=== PATIENT | male | born 1950 | race African-American/Black ===

== ENCOUNTER 2017-10-17 14:54 | Emergency (ER) | payer MEDICAID ==
[~2017-10-17] VITALS: Ht 172.7 cm; Wt 79.0 kg
[~2017-10-17 14:54] MED LIST: AMLO10TA4 PO; ASPI-1159 PO; BENA20TA77 PO; BUSP10TA3 PO; HYDR-519 PO
[2017-10-17 16:15] LABS: BASOPHILS % 0.6 % (0.0-2.0); EOSINOPHILS % 1.8 % (0.0-5.0); HEMATOCRIT. 39.6 % (42.0-52.0); HEMOGLOBIN. 13.7 g/dL (14.0-18.0); LYMPHOCYTES % 50.8 % (20.0-50.0); MEAN CORPUSCULAR HEMOGLOBIN 31.2 pg (28.0-32.0); MEAN CORPUSCULAR VOLUME 89.9 fL (80.0-94.0); MEAN PLATELET VOLUME 8.4 fl (7.4-10.4); MONOCYTES % 10.2 % (2.0-8.0); NEUTROPHILS % 36.6 % (40.0-76.0); PLATELET 154 x1000/uL (130-400); RED CELL DISTRIBUTION WIDTH 13.2 % (11.6-14.6)
[2017-10-17 16:20] LABS: CHLORIDE 105 mEq/L (98-107)
[2017-10-17 16:23] LABS: INR 1.1; PARTIAL THROMBOPLASTIN TIME 23.1 sec (23.4-31.0); PROTHROMBIN TIME 11.2 sec (9.4-11.6)
[2017-10-17 16:24] LABS: ETHANOL BLOOD < 10 mg/dL
[2017-10-17] MEDS ORDERED: MORPHINE SULFATE 4 MG/ML CPJ (NOT FOR IM USE) IV ONE ×2 (16:45)
[2017-10-17 18:05] LABS: CLARITY URINE CLEAR (CLEAR); COLOR URINE DARK YELLOW (YELLOW); KETONES URINE TRACE (NEGATIVE); LEUKOCYTE ESTERASE URINE NEGATIVE (NEGATIVE); NITRITE URINE NEGATIVE (NEGATIVE); OCCULT BLOOD URINE TRACE (NEGATIVE); PROTEIN URINE TRACE (NEGATIVE)
[2017-10-17 18:29] LABS: *AMPHETAMINES SCREEN URINE PRESUMTIVE POSITIVE (NEGATIVE); *BARBITURATES SCREEN URINE NEGATIVE (NEGATIVE); *BENZODIAZEPINES SCREEN URINE NEGATIVE (NEGATIVE); *COCAINE SCREEN URINE PRESUMTIVE POSITIVE (NEGATIVE)
[2017-10-17 18:30] LABS: CANNABINOID URINE SCREEN PRESUMTIVE POSITIVE (NEGATIVE); METHADONE URINE SCREEN NEGATIVE (NEGATIVE); OPIATES URINE SCREEN NEGATIVE (NEGATIVE); PHENCYCLIDINE URINE SCREEN NEGATIVE (NEGATIVE)
[2017-10-17 18:37] VITALS: BP 128/80
== END 2017-10-17 20:05 | disposition home or self-care (01) ==
LOC: ER 15:53
DX: N40.1 Benign prostatic hyperplasia with lower urinary tract symptoms (principal); I10 Essential (primary) hypertension; I25.10 Atherosclerotic heart disease of native coronary artery without angina pectoris; F17.200 Nicotine dependence, unspecified, uncomplicated; F12.10 Cannabis abuse, uncomplicated; Z79.82 Long term (current) use of aspirin
CPT/HCPCS: 36415; 51701; 71045; 80053; 80305; 81003; 83690; 84484; 85025; 85610; 85730; 93005; 96374; 99285; G0482; J2270

== ENCOUNTER 2018-01-17 18:25 | Emergency (ER) | payer MEDICARE, MEDICAID ==
[~2018-01-17] VITALS: Ht 180.3 cm; Wt 78.0 kg
[2018-01-17] MEDS ORDERED: ONDANSETRON HCL 4MG/2ML INJ IV STA (20:19)
[2018-01-17] MEDS ORDERED: KETOROLAC 30MG/ML VIAL IV STA (20:19)
[2018-01-17] MEDS ORDERED: LORAZEPAM 2MG/ML CPJ IV STA (20:19)
[2018-01-17] MEDS ORDERED: MORPHINE SULFATE 4 MG/ML CPJ (NOT FOR IM USE) IV STA (20:19)
[2018-01-17] MEDS ORDERED: SODIUM CHLORIDE 0.9% 1,000 ML IV ONE (20:19)
[2018-01-17 23:05] LABS: BASOPHILS % 0.4 % (0.0-2.0); EOSINOPHILS % 1.8 % (0.0-5.0); HEMATOCRIT. 40.1 % (42.0-52.0); HEMOGLOBIN. 13.6 g/dL (14.0-18.0); LYMPHOCYTES % 37.4 % (20.0-50.0); MEAN CORPUSCULAR HEMOGLOBIN 31.1 pg (28.0-32.0); MEAN CORPUSCULAR VOLUME 91.5 fL (80.0-94.0); MEAN PLATELET VOLUME 8.9 fl (7.4-10.4); MONOCYTES % 6.9 % (2.0-8.0); NEUTROPHILS % 53.5 % (40.0-76.0); PLATELET 121 x1000/uL (130-400); RED BLOOD CELL COUNT 4.38 mill/uL (4.7-6.1); RED CELL DISTRIBUTION WIDTH 13.6 % (11.6-14.6)
[2018-01-17 23:07] LABS: *BARBITURATES SCREEN URINE NEGATIVE (NEGATIVE)
[2018-01-17 23:08] LABS: *AMPHETAMINES SCREEN URINE NEGATIVE (NEGATIVE); *BENZODIAZEPINES SCREEN URINE NEGATIVE (NEGATIVE); *COCAINE SCREEN URINE NEGATIVE (NEGATIVE); METHADONE URINE SCREEN NEGATIVE (NEGATIVE); OPIATES URINE SCREEN PRESUMTIVE POSITIVE (NEGATIVE); PHENCYCLIDINE URINE SCREEN PRESUMTIVE POSITIVE (NEGATIVE)
[2018-01-17 23:09] LABS: CANNABINOID URINE SCREEN PRESUMTIVE POSITIVE (NEGATIVE)
[2018-01-17 23:10] LABS: CHLORIDE 107 mEq/L (98-107)
[2018-01-17 23:14] LABS: INR 1.1; PARTIAL THROMBOPLASTIN TIME 25.8 sec (23.4-31.0); PROTHROMBIN TIME 10.8 sec (9.1-11.1)
[2018-01-17 23:16] LABS: ETHANOL BLOOD < 10 mg/dL
[2018-01-17 23:21] LABS: CREATINE KINASE 93 IU/L (39-308)
[2018-01-17 23:23] LABS: AMMONIA 11 uMol/L (<32)
[2018-01-18 02:22] VITALS: BP 126/65
== END 2018-01-18 02:27 | disposition home or self-care (01) ==
LOC: ER 18:47
DX: T43.621A Poisoning by amphetamines, accidental (unintentional), initial encounter (principal); R51 Headache; I10 Essential (primary) hypertension; F12.10 Cannabis abuse, uncomplicated; F11.10 Opioid abuse, uncomplicated; F16.10 Hallucinogen abuse, uncomplicated; F17.200 Nicotine dependence, unspecified, uncomplicated; N28.9 Disorder of kidney and ureter, unspecified; Z79.899 Other long term (current) drug therapy; Y92.89 Other specified places as the place of occurrence of the external cause
CPT/HCPCS: 36415; 70450; 71045; 80053; 80305; 80307; 80329; 82140; 82550; 82962; 83690; 83880; 84443; 84484; 85025; 85610; 85730; 93005; 96361; 96374; 96375; 99285; G0482; J1885; J2060; J2270; J2405; J7030

== ENCOUNTER 2021-03-02 14:57 | Emergency (ER) | payer MEDICARE, MEDICAID ==
[~2021-03-02] VITALS: Ht 157.5 cm; Wt 78.0 kg
[~2021-03-02 14:57] MED LIST changes: -ASPI-1159 PO; +ASPI-1497 PO
[2021-03-02] MEDS ORDERED: IBUPROFEN 400MG TABLET PO ONE (19:00)
[2021-03-02 19:06] LABS: HEMATOCRIT 39.2 % (42.0-52.0); HEMOGLOBIN 13.2 g/dL (14.0-18.0); MEAN CORPUSCULAR HEMOGLOBIN 29.5 pg (28.0-32.0); PLATELET 159 x1000/uL (130-400); RED BLOOD CELL COUNT 4.46 mill/uL (4.7-6.1); RED CELL DISTRIBUTION WIDTH 13.8 % (11.6-14.6)
[2021-03-02 19:12] LABS: CHLORIDE 110 mEq/L (98-107)
[2021-03-02] MEDS ORDERED: RIVAROXABAN 15 MG TABLET PO STA (19:29)
[2021-03-02] MEDS ORDERED: XAR15 MT (19:56)
[2021-03-02 20:40] VITALS: BP 132/85
== END 2021-03-02 20:45 | disposition home or self-care (01) ==
LOC: ER 14:57
DX: I82.412 Acute embolism and thrombosis of left femoral vein (principal); I10 Essential (primary) hypertension
CPT/HCPCS: 36415; 80048; 83880; 85027; 93971; 99284

== ENCOUNTER 2022-07-18 02:43 | Inpatient (IN) | payer MEDICARE, MEDICAID ==
[~2022-07-18] VITALS: Ht 172.7 cm; Wt 72.6 kg
[~2022-07-18 02:43] MED LIST changes: +XAR15 MT
[2022-07-18 03:48] LABS: BASOPHILS % 0.7 % (0.0-2.0); EOSINOPHILS % 1.7 % (0.0-5.0); HEMATOCRIT. 43.5 % (42.0-52.0); HEMOGLOBIN. 15.3 g/dL (14.0-18.0); LYMPHOCYTES % 34.5 % (20.0-50.0); MEAN CORPUSCULAR HEMOGLOBIN 31.8 pg (28.0-32.0); MEAN CORPUSCULAR VOLUME 90.6 fL (80.0-94.0); MEAN PLATELET VOLUME 9.2 fl (7.4-10.4); MONOCYTES % 7.3 % (2.0-8.0); NEUTROPHILS % 55.8 % (40.0-76.0); PLATELET 201 x1000/uL (130-400); RED CELL DISTRIBUTION WIDTH 14.1 % (11.6-14.6)
[2022-07-18 03:56] LABS: CHLORIDE 102 mEq/L (98-107)
[2022-07-18] MEDS ORDERED: HYDRALAZINE 20MG/ML VIAL IV ONE (04:00)
[2022-07-18] MEDS ORDERED: ONDANSETRON HCL 4MG/2ML INJ IV ONE (04:00)
[2022-07-18] MEDS ORDERED: ASPIRIN 325MG EC TABLET PO ONE (04:00)
[2022-07-18] MEDS ORDERED: MORPHINE SULFATE 4 MG/ML CPJ (NOT FOR IM USE) IV ONE (04:00)
[2022-07-18 04:03] LABS: PARTIAL THROMBOPLASTIN TIME 26.2 sec (23.4-31.0); PROTHROMBIN TIME 10.9 sec (9.6-11.0)
[2022-07-18] MEDS ORDERED: ACETAMINOPHEN 325MG TABLET PO ONE (06:00)
[2022-07-18 08:50] LABS: CLARITY URINE CLEAR (CLEAR); COLOR URINE YELLOW (YELLOW); KETONES URINE 1+ (NEGATIVE); LEUKOCYTE ESTERASE URINE NEGATIVE (NEGATIVE); NITRITE URINE NEGATIVE (NEGATIVE); OCCULT BLOOD URINE NEGATIVE (NEGATIVE); PROTEIN URINE 2+ (NEGATIVE); SPECIFIC GRAVITY URINE 1.017 (1.005-1.030)
[2022-07-18 09:09] VITALS: BP 112/62
[2022-07-18 09:42] VITALS: BP 112/62
[2022-07-18] MEDS ORDERED: ONDANSETRON HCL 4MG/2ML INJ IV PRN (11:30)
[2022-07-18] MEDS ORDERED: CLONIDINE 0.1MG TABLET PO PRN (11:30)
[2022-07-18] MEDS ORDERED: ACETAMINOPHEN 325MG TABLET PO PRN (11:30)
[2022-07-18 12:32] VITALS: BP 115/40
[2022-07-18] MEDS ORDERED: FUROSEMIDE 20MG/2ML VIAL IVP SCH (13:00)
[2022-07-18] MEDS: METOPROLOL TARTRATE 25MG TABLET PO SCH ×2 (13:41→21:00)
[2022-07-18 17:00] VITALS: BP 114/63
[2022-07-18 17:31] LABS: HEPATITIS B SURFACE ANTIGEN NEGATIVE
[2022-07-18 20:00] VITALS: BP 110/50
[2022-07-18] MEDS ORDERED: IPRATROPIUM/ALBUTEROL 0.5-3(2.5)MG/3ML NEB HHN PRN (21:15)
[2022-07-18 21:31] LABS: *AMPHETAMINES SCREEN URINE NEGATIVE (NEGATIVE); *BARBITURATES SCREEN URINE NEGATIVE (NEGATIVE); *BENZODIAZEPINES SCREEN URINE NEGATIVE (NEGATIVE); *COCAINE SCREEN URINE PRESUMTIVE POSITIVE (NEGATIVE); CANNABINOID URINE SCREEN PRESUMTIVE POSITIVE (NEGATIVE); METHADONE URINE SCREEN NEGATIVE (NEGATIVE); OPIATES URINE SCREEN PRESUMTIVE POSITIVE (NEGATIVE); PHENCYCLIDINE URINE SCREEN NEGATIVE (NEGATIVE)
[2022-07-19] VITALS: BP 108/57
[2022-07-19 04:58] VITALS: BP 136/96
[2022-07-19] MEDS ORDERED: POTASSIUM CHLORIDE 20MEQ TABLET SR PO NR (06:15)
[2022-07-19 08:00] VITALS: BP 154/81
[2022-07-19] MEDS ORDERED: ASPIRIN 81MG TABLET PO SCH (09:00)
[2022-07-19] MEDS ORDERED: ALBU18HF2 IH (10:35)
[2022-07-19] MEDS ORDERED: FLUT1DIS3 INH (10:35)
[2022-07-19 12:00] VITALS: BP 130/71
[2022-07-19 12:11] VITALS: BP 130/71
== END 2022-07-19 17:04 | disposition home or self-care (01) | DRG 194 ==
LOC: ER 02:43 → 7WST 07:09
PROVIDERS: ADMIT Internal Medicine; ATTEND Internal Medicine
DX: I11.0 Hypertensive heart disease with heart failure (principal); B19.20 Unspecified viral hepatitis C without hepatic coma; E78.00 Pure hypercholesterolemia, unspecified; I50.31 Acute diastolic (congestive) heart failure; F17.210 Nicotine dependence, cigarettes, uncomplicated; Z20.822 Contact with and (suspected) exposure to COVID-19; J44.9 Chronic obstructive pulmonary disease, unspecified; E87.6 Hypokalemia; I16.0 Hypertensive urgency; F14.10 Cocaine abuse, uncomplicated; N40.0 Benign prostatic hyperplasia without lower urinary tract symptoms; Z91.14 Patient's other noncompliance with medication regimen
CPT/HCPCS: 36415; 71045; 80053; 80305; 81003; 82962; 83880; 84484; 85025; 86803; 87340; 87426; 93005; 93306; 99285; J0360; J1940; J2270; J2405

== ENCOUNTER 2022-09-23 01:28 | Emergency (ER) | payer MEDICARE, MEDICAID ==
[~2022-09-23] VITALS: Ht 172.7 cm; Wt 69.0 kg
[~2022-09-23 01:28] MED LIST changes: +ALBU18HF2 IH; +FLUT1DIS3 INH
[2022-09-23] MEDS ORDERED: HYDROCODONE/ACETAMINOPHEN 5/325MG TABLET PO STA (02:37)
[2022-09-23] MEDS ORDERED: KETOROLAC 30MG/ML VIAL IM ONE (02:45)
[2022-09-23 03:22] VITALS: BP 130/72
[2022-09-23] MEDS ORDERED: TRAM50TA3 MT (04:24)
[2022-09-23] MEDS ORDERED: NAPR-681 PO (04:24)
== END 2022-09-23 04:41 | disposition home or self-care (01) ==
LOC: ER 01:28
DX: M54.42 Lumbago with sciatica, left side (principal); F14.10 Cocaine abuse, uncomplicated
CPT/HCPCS: 72100; 96372; 99283; J1885